=== PATIENT | male | born 1960 | race Caucasian/White ===

== ENCOUNTER 2018-05-23 16:47 | Emergency (ER) | payer BC ==
[2018-05-23 17:27] VITALS: BP 171/93
--- NOTE | 2018-05-23 18:51 | UC ---
Skin Complaint HPI - HPI Summary HPI Summary: The patient is a 58-year-old male with this annular rash surrounding his umbilicus. The rash is slightly pruritic. It has been growing in size. It has been present for 4-5 days. He works outdoors a lot. He denies any fever or chills. He denies any recent tick bite. He has no headache or myalgias. - History of Current Complaint Chief Complaint: UCSkin Time Seen by Provider: 05/23/18 18:31 Stated Complaint: RASH Onset/Duration: Gradual Onset Skin Exposure Onset/Duration: Days Ago Timing: Constant Onset Severity: Mild Current Severity: Mild Pain Intensity: 0 Pain Scale Used: 0-10 Numeric Location: Discrete Character: Pruritus, Redness - Allergy/Home Medications Allergies/Adverse Reactions: Allergies Allergy/AdvReac Type Severity Reaction Status Date / Time No Known Allergies Allergy Verified 05/23/18 17:27 Home Medications: Home Medications Bag [place]* PRN 05/23/18 [History] Bp Med* 05/23/18 [History] Cholesterol Med* 05/23/18 [History] Clotrimazole 1% TOPICAL (NF) [Lotrimin 1% TOPICAL (NF)] 1 applic TOPICAL PRN [History] Review of Systems Constitutional: Negative Skin: Rash Eyes: Negative ENT: Negative Respiratory: Negative Cardiovascular: Negative Gastrointestinal: Negative Genitourinary: Negative Motor: Negative Neurovascular: Negative Musculoskeletal: Negative Neurological: Negative Psychological: Negative Is Patient Immunocompromised?: No All Other Systems Reviewed And Are Negative: Yes PMH/Surg Hx/FS Hx/Imm Hx Previously Healthy: Yes Endocrine History: Dyslipidemia Cardiovascular History: Hypertension - Surgical History Surgical History: Yes Surgery Procedure, Year, and Place: Lt LEG - LOWER CALF AREA - BIOPSIED- POLYNEURITIS - Family History Known Family History: Positive: Hypertension Negative: Cardiac Disease, Diabetes - Social History Alcohol Use: Occasionally Substance Use Type: None Smoking Status (MU): Never Smoked Tobacco Physical Exam Triage Information Reviewed: Yes Appearance: Well-Appearing, No Pain Distress, Well-Nourished Vital Signs: Initial Vital Signs Temp 98.1 F 05/23/18 17:24 Pulse 82 05/23/18 17:24 Resp 16 05/23/18 17:24 BP 171/93 05/23/18 17:24 Pulse Ox 95 05/23/18 17:24 Eyes: Positive: Conjunctiva Clear ENT: Positive: Hearing grossly normal. Negative: Nasal congestion, Nasal drainage, Trismus, Hoarse voice, Sinus tenderness Neck: Positive: Supple, Nontender Respiratory: Positive: Lungs clear, Normal breath sounds, No respiratory distress, No accessory muscle use Cardiovascular: Positive: RRR, No Murmur Musculoskeletal: Positive: No Edema Neurological: Positive: Alert Psychological Exam: Normal Skin Exam: Other - 11 X 15 CM BULL'S EYE RASH Course/Dx - Diagnoses Provider Diagnoses: LYME DISEASE Discharge - Sign-Out/Discharge Documenting (check all that apply): Patient Departure All imaging exams completed and their final reports reviewed: No Studies - Discharge Plan Condition: Stable Disposition: HOME Prescriptions: DOXYcycline CAP(*) [DOXYcycline 100MG CAP(*)] 100 mg PO BID #28 cap Triamcinolone 0.5% CREAM(NF) [Triamcinolone 0.5% CREAM*] 1 applic TOPICAL QID # 30 tube Patient Education Materials: Lyme Disease (ED) Referrals: Thea Walker MD [Primary Care Provider] - 2 Weeks - Billing Disposition and Condition Condition: STABLE Disposition: Home Images Front/Back of Body, Lg ([place]): 1 - 11X15 CM RASH CW EM
== END 2018-05-23 19:00 | disposition home or self-care (01) ==
LOC: UCEAST 16:47
DX: A69.20 Lyme disease, unspecified (principal)
CPT/HCPCS: 99212; G0463

== ENCOUNTER 2023-10-29 20:20 | Observation (INO) ==
[2023-10-29 21:22] LABS: ABS Lymphocytes 1.3 10^3/uL (1.0-4.8); ABS Monocytes 1.2 10^3/uL (0.0-1.1); ABS Neutrophils 12.3 10^3/uL (1.5-7.6); ABS Nucleated RBC 0.03 10^3/ul; Eosinophil % 0.3 %; Hematocrit 46.8 % (38-53); Hemoglobin 16.2 g/dL (13.2-16.3); Mean Corpuscular Hemoglobin 27.9 pg (27-33); Mean Corpuscular Hgb Conc 34.6 g/dL (31-36); Mean Corpuscular Volume 80.5 fL (80-97); Mean Platelet Volume 6.8 fL (7.5-11.2); Nucleated Red Blood Cells % 0.2 %/100WBC (0.0-0.8); Platelet Count 250 10^3/uL (150-450); Red Blood Count 5.82 10^6/uL (4.06-5.63); Red Cell Distribution Width 14.6 % (12-17)
[2023-10-29 21:51] LABS: Albumin 4.6 g/dL (3.2-5.2); Albumin/Globulin Ratio 1.7 (1-3); C Reactive Protein 109.11 mg/L (<8.01); Calcium 9.7 mg/dL (8.6-10.3); Creatinine, Serum 1.53 mg/dL (0.67-1.17); Globulin 2.7 g/dL (2-4); Potassium 4.2 mmol/L (3.5-5.0); Total Bilirubin 1.2 mg/dL (0.2-1.0); Total Protein 7.3 g/dL (6.4-8.9); eGFR CKD-EPI 50.8 (>60)
[2023-10-29] MEDS: Ondansetron 4 mg VIAL 2 MG/ML 2 ml VIAL IV ONE (22:34)
[2023-10-29] MEDS: Morphine 4 MG/ML VIAL (1 ml) IV ONE (22:34)
[2023-10-29 22:52] LABS: Urine Color Light-Brown
[2023-10-29 22:54] LABS: Urine Appearance Extra Turbid; Urine Bacteria 1+ /HPF (Absent); Urine Bilirubin Negative (Negative); Urine Blood 3+ (Negative); Urine Glucose Negative (Negative); Urine Ketones Negative (Negative); Urine Nitrite Negative (Negative); Urine Protein 2+ (>=100 mg/dL) (Negative); Urine Red Blood Cell 3+(>10/hpf) /HPF (0-Trace); Urine Specific Gravity 1.019 (1.002-1.030); Urine Urobilinogen Negative (Negative); Urine White Blood Cell 2+(11-20/hpf) /HPF (0-Trace); Urine pH 5.5 (5.0-8.0)
[2023-10-29] MEDS: Iohexol 300 (CONTRAST) 10 ML SDV IV ONE (23:30)
[2023-10-30] MEDS: Acetaminophen IV 1 GM/100ML 1,000 MG/100 ML BAG IV ONE (00:23)
[2023-10-30] MEDS ORDERED: Ondansetron 4 mg VIAL 2 MG/ML 2 ml VIAL IV PRN (01:29)
[2023-10-30] MEDS ORDERED: Zosyn per Pharmacy NOTE FOLLOW UP PRN (01:49)
[2023-10-30] MEDS: Piperacillin/Tazobac 3.375 BAG 3.375 GM/100 ML BAG IV ONE (01:50)
[2023-10-30] MEDS: Lactated Ringers 1000 ml BAG 1,000 ML IV ONE (01:59)
[2023-10-30] MEDS ORDERED: metroNIDAZOLE IV 500 MG/100ML 100 ML IVPB SCH (02:00)
[2023-10-30] MEDS: HYDROmorphone 1 MG/1 ML SYRINGE IV SLOW PU PRN (02:06)
[2023-10-30] MEDS: Lactated Ringers 1000 ml BAG 1,000 ML IV SCH (03:51)
[2023-10-30] MEDS ORDERED: Bupivacaine 0.25% SDV 30 ML ONE (06:30)
[2023-10-30] MEDS ORDERED: fentaNYL 100 mcg/2 ml 50 MCG/ML VIAL ONE ×2 (07:05→08:39)
[2023-10-30] MEDS ORDERED: Rocuronium 50 mg VIAL 10 mg/ml 5 ml VIAL (50 mg) ONE ×2 (07:05→08:25)
[2023-10-30] MEDS ORDERED: Dexamethasone IV 4 MG/ML VIAL 1 ml VIAL ONE (07:05)
[2023-10-30] MEDS ORDERED: Propofol 10 MG/ML 20 ML BTL ONE (07:05)
[2023-10-30] MEDS ORDERED: Ondansetron 4 mg VIAL 2 MG/ML 2 ml VIAL ONE (07:05)
[2023-10-30] MEDS ORDERED: Lidocaine 2% PF 5 ML VIAL ONE (07:05)
[2023-10-30] MEDS ORDERED: Midazolam 2 mg/2 ml VIAL 1 mg/ml 2 ml VIAL (2 mg) ONE (07:09)
[2023-10-30] MEDS ORDERED: Acetaminophen IV 1 GM/100ML 1,000 MG/100 ML BAG IV ONE (07:54)
[2023-10-30] MEDS ORDERED: Phenylephrine 40 mcg/mL 10mL (400mcg) SYRINGE ONE (07:54)
[2023-10-30] MEDS ORDERED: HYDROmorphone 0.5 MG/0.5 ML SYRINGE IV SLOW PU PRN ×2 (09:28→10:18)
[2023-10-30] MEDS: ZOSYN 3.375 GM Q8H per EXTENDED INFUSION IV SCH ×2 (10:35→14:03)
[2023-10-31] MEDS: NS 0.9% 1,000 ML IV SCH (00:57)
[2023-10-31 06:12] LABS: Calcium 7.7 mg/dL (8.6-10.3); Creatinine, Serum 2.34 mg/dL (0.67-1.17); Potassium 4.4 mmol/L (3.5-5.0); eGFR CKD-EPI 30.5 (>60)
[2023-11-01 06:57] LABS: Calcium 8.1 mg/dL (8.6-10.3); Creatinine, Serum 1.73 mg/dL (0.67-1.17); Magnesium 2.2 mg/dL (1.9-2.7); Phosphorus 3.3 mg/dL (2.5-5.0); Potassium 4.1 mmol/L (3.5-5.0); eGFR CKD-EPI 43.8 (>60)
[2023-11-01 12:13] VITALS: BP 159/79
== END 2023-11-01 13:39 | disposition home or self-care (01) ==
LOC: EDHOLD 20:20 → SSU 20:20 → ED 20:20 → SDS 10-30 06:35 → SSU 10-30 06:45 → ED 10-30 06:45
PROVIDERS: ADMIT Surgery; ATTEND Surgery